=== PATIENT | male | born 1960 | race African-American/Black ===

== ENCOUNTER 2019-10-15 13:10 | Emergency (ER) | payer MEDICAID ==
[~2019-10-15] VITALS: Ht 165.1 cm; Wt 45.4 kg
--- NOTE | 2019-10-15 13:25 | NUR ---
ED Nurse Note: Pt walked in from home c/o generlized weakness x 1 week with difficulty walking. Pt reports weight loss. Denies n/v/d and denies loss of appetite. Pt c/o RLE pain 01/28 x 2 months, ambulatory with assistance. Respirations even and unlabored on room air. Vitals stable as documented.
--- NOTE | 2019-10-15 13:46 | Emergency Room Report ---
History of Present Illness General Chief Complaint: Generalized Weakness Source: Patient Present Illness HPI 59-year-old male with no known significant past medical history here complaining of feeling weak all over body x1 week as well as right leg pain x2 months. Patient denies any fall or injury. Reports that he has not been seen by a doctor for the past 35 years. 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 Rates the pain 10 out of 10 in right lower extremity especially at nighttime. Denies any calf tenderness. Denies any chest pain shortness of breath. Denies any fever chills, cough or congestion. Denies any unilateral weakness, slurred speech, headache and dizziness. Denies any memory loss. Denies any palpitation, abdominal pain, nausea vomiting. Reports in the past 2 months he has been losing a lot of weight about 15 pounds without any change in diet. Denies any loss of appetite. Denies any diarrhea, blood in stool or urine. Reports that he has been smoking 10 cigarettes/day since 1974 and denies any drug use or alcohol intake. Denies any pleuritic chest pain. Appears with slightly elevated blood pressure however vital signs otherwise within normal limits. Allergies: Coded Allergies: No Known Allergies (Unverified , 10/15/19) COVID-19 Screening Contact w/high risk pt: No Recent Travel to affected area: No Experienced COVID-19 symptoms?: No Patient History Past Medical History: see triage record Past Surgical History: none Social History: Reports: smoking - Smoking about 10 cigarettes/day Immunizations: UTD Reviewed Nursing Documentation: PMH: Agreed; PSxH: Agreed Nursing Documentation-PMH Past Medical History: No Stated History Review of Systems All Other Systems: negative except mentioned in HPI Physical Exam Vital Signs Date Time Temp Pulse Resp B/P (MAP) Pulse Ox O2 Delivery O2 Flow Rate FiO2 10/15/19 13:19 98.2 109 16 153/67 (95) 96 Room Air Sp02 EP Interpretation: reviewed, abnormal - Elevated blood pressure General Appearance: no apparent distress, alert, GCS 15, non-toxic Head: normocephalic, atraumatic Eyes: bilateral eye normal inspection, bilateral eye PERRL ENT: hearing grossly normal, normal pharynx, no angioedema, normal voice Neck: full range of motion, supple/symm/no masses Respiratory: chest non-tender, lungs clear, normal breath sounds, no rhonchi, no retraction, no wheezing, speaking full sentences Cardiovascular #1: regular rate, rhythm, no edema, no murmur Gastrointestinal: normal bowel sounds, non tender, soft, non-distended, no guarding, no rebound Genitourinary: no CVA tenderness Musculoskeletal: back normal, digits/nails normal, no calf tenderness Neurologic: alert, motor strength/tone normal, oriented x3, sensory intact, responsive, speech normal Psychiatric: judgement/insight normal, memory normal, mood/affect normal, no suicidal/homicidal ideation Skin: no rash Lymphatic: no adenopathy Medical Decision Making PA Attestation All my diagnosis and treatment plans were reviewed ad discussed with my supervising physician Dr. Arriaga Diagnostic Impression: Primary Impression: Hyperglycemia Additional Impression: Muscle strain ER Course 59-year-old male with no known significant past medical history here complaining of feeling weak all over body x1 week as well as right leg pain x2 months. Patient denies any fall or injury. Reports that he has not been seen by a doctor for the past 35 years. 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 Rates the pain 10 out of 10 in right lower extremity especially at nighttime. Denies any calf tenderness. Denies any chest pain shortness of breath. Denies any fever chills, cough or congestion. Denies any unilateral weakness, slurred speech, headache and dizziness. Denies any memory loss. Denies any palpitation, abdominal pain, nausea vomiting. Reports in the past 2 months he has been losing a lot of weight about 15 pounds without any change in diet. Denies any loss of appetite. Denies any diarrhea, blood in stool or urine. Reports that he has been smoking 10 cigarettes/day since 1974 and denies any drug use or alcohol intake. Denies any pleuritic chest pain. Appears with slightly elevated blood pressure however vital signs otherwise within normal limits. Ddx considered but are not limited to: CVA, TIA, pulmonary embolism leading to stroke,DM Vital signs: are WNL, pt. is afebrile H&PE are most consistent with: Hyperglycemia, muscle strain ORDERS: Head CT no contrast, stroke work-up, DKA work-up, Tylenol, Voltaren gel ER intervention: NS bolus, insulin 10 units At this time patient to be discharged stable time of discharge, patient follow with primary doctor for management of type 2 diabetes hemoglobin A1c to be done and patient to be evaluated for determination of further insulin-dependent or p.o. medication. Also patient to follow primary doctor due to weight loss as patient is a smoker to be sent to [facility] possible carcinoma. EKG Diagnostic Results Rate: normal Rhythm: NSR ST Segments: no acute changes Other Impression No acute ST changes Chest X-Ray Diagnostic Results Chest X-Ray Diagnostic Results : Chest X-Ray Ordered: Yes # of Views/Limited/Complete: 1 View Indication: Other EP Interpretation: Yes PA Xray: Interpretation reviewed, by supervising MD, and agrees with findings. Interpretation: no consolidation, no effusion, no pneumothorax Impression: No acute disease Electronically Signed by: Mike Shepherd PA-C CT/MRI/US Diagnostic Results CT/MRI/US Diagnostic Results : Imaging Test Ordered: Head CT no contrast Impression FINDINGS: Brain: No acute infarct or hemorrhage. No extra-axial fluid collection. No mass effect or midline shift. Ventricles and sulci: Normal. No ventriculomegaly or intraventricular hemorrhage. Bones: Normal. No bony lesion or fracture. Subcutaneous tissues: Normal. Sinuses: Mild mucosal thickening in the ethmoid air cells and right sphenoid sinus. Mastoid air cells: Normal. Orbits: Grossly unremarkable. Other: Mild atherosclerotic calcifications of the intracranial vasculature. IMPRESSION: No acute intracranial abnormality. Last Vital Signs Date Time Temp Pulse Resp B/P (MAP) Pulse Ox O2 Delivery O2 Flow Rate FiO2 10/15/19 13:19 98.2 109 16 153/67 (95) 96 Room Air Disposition: HOME, SELF-CARE Condition: Stable Scripts Diclofenac Sodium (VOLTAREN) 100 Gm Gel..gram. 2 GM TP TID, #100 GM Prov: Mike Coulter 10/15/19 Acetaminophen* (TYLENOL EXTRA STRENGTH*) 500 Mg Tablet 500 MG ORAL Q8H PRN for Prn Headache/Temp > 101, #30 TAB 0 Refills Prov: Mike Coulter 10/15/19 Patient Instructions: Hyperglycemia, [id number], Muscle Strain, [id number] , Weakness Additional Instructions: Patient to follow-up primary doctor for better management of diabetes, hemoglobin A1c to be tested and managed. Avoid smoking, avoid eating sugar and carbohydrate, if worsening symptoms return to the emergency room. Also have primary doctor evaluate you further for weight loss, referral to [facility] needed due to your prolonged history of smoking. Mike Coulter Oct 15, 2019 13:46
--- NOTE | 2019-10-15 13:47 | NUR ---
ED Nurse Note: blood sent to lab. Fingerstick BS 466. ED PA aware
[2019-10-15 13:58] VITALS: BP 149/71
--- NOTE | 2019-10-15 14:05 | Diagnostic Imaging Report ---
EXAM: CT Head Without Intravenous Contrast CLINICAL HISTORY: DIZZY TECHNIQUE: Axial computed tomography images of the head/brain without intravenous contrast. CTDI is 53.4 mGy and DLP is 938.7 mGy-cm. One or more of the following dose reduction techniques were used: automated exposure control, adjustment of the mA and/or kV according to patient size, use of iterative reconstruction technique. COMPARISON: None FINDINGS: Brain: No acute infarct or hemorrhage. No extra-axial fluid collection. No mass effect or midline shift. Ventricles and sulci: Normal. No ventriculomegaly or intraventricular hemorrhage. Bones: Normal. No bony lesion or fracture. Subcutaneous tissues: Normal. Sinuses: Mild mucosal thickening in the ethmoid air cells and right sphenoid sinus. Mastoid air cells: Normal. Orbits: Grossly unremarkable. Other: Mild atherosclerotic calcifications of the intracranial vasculature. IMPRESSION: No acute intracranial abnormality.
--- NOTE | 2019-10-15 14:07 | Diagnostic Imaging Report ---
EXAM: XR Chest, 1 View CLINICAL HISTORY: PAIN TECHNIQUE: Frontal view of the chest. COMPARISON: None FINDINGS: Hardware: None. Lungs/pleura: Normal. No focal consolidation. No pleural effusion or pneumothorax. Heart/mediastinum: Normal. No cardiomegaly. Soft tissues: Unremarkable. Bones: No acute fracture. Upper abdomen: Normal. IMPRESSION: No acute disease identified.
--- NOTE | 2019-10-15 14:40 | NUR ---
ED Nurse Note: urine sent to lab
[2019-10-15 14:52] LABS: BASOPHILS % (AUTO) 1.7 % (0.0-2.0); HEMATOCRIT 43.5 % (42.0-52.0); HEMOGLOBIN 16.1 G/DL (14.2-18.0); LYMPHOCYTES % (AUTO) 27.7 % (20.0-45.0); MEAN CORPUSCULAR VOLUME 89 FL (80-99); MONOCYTES % (AUTO) 7.7 % (1.0-10.0); NEUTROPHILS % (AUTO) 54.9 % (45.0-75.0); PLATELET COUNT 187 K/UL (150-450); RED CELL DISTRIBUTION WIDTH 9.6 % (11.6-14.8); WHITE BLOOD COUNT 7.2 K/UL (4.8-10.8)
[2019-10-15 15:05] LABS: ANION GAP 12 mmol/L (5-15); BLOOD UREA NITROGEN 9 mg/dL (7-18); CALCIUM 9.3 MG/DL (8.5-10.1); CARBON DIOXIDE 26 MMOL/L (21-32); CHLORIDE 96 MMOL/L (98-107); CREATININE 0.9 MG/DL (0.55-1.30); POTASSIUM 3.8 MMOL/L (3.5-5.1); SODIUM 134 MMOL/L (136-145)
[2019-10-15 15:08] LABS: APPEARANCE,URINE CLEAR; BILIRUBIN, URINE NEGATIVE (NEGATIVE); COLOR,URINE PALE YELLOW; GLUCOSE, URINE (UA) 4+ (NEGATIVE); KETONES,URINE NEGATIVE (NEGATIVE); LEUKOCYTE ESTERASE ,URINE NEGATIVE (NEGATIVE); NITRITE,URINE NEGATIVE (NEGATIVE); PH,URINE 7 (4.5-8.0); PROTEIN,URINE NEGATIVE (NEGATIVE); UROBILINOGEN,URINE 1 MG/DL (0.0-1.0)
[2019-10-15 15:09] LABS: ALANINE AMINOTRANSFERASE 21 U/L (12-78); ALBUMIN 3.8 G/DL (3.4-5.0); ALKALINE PHOSPHATASE 102 U/L (46-116); ASPARTATE AMINO TRANSFERASE 15 U/L (15-37); CREATINE KINASE 43 U/L (26-308)
[2019-10-15] MEDS ORDERED: Insulin Human Regular 100units/ml 3ml IV ONE (15:30)
[2019-10-15 16:00] VITALS: BP 145/74
--- NOTE | 2019-10-15 16:31 | NUR ---
ED Nurse Note: BS checked --> 431. ED MD aware
--- NOTE | 2019-10-15 16:50 | NUR ---
ED Nurse Note: ED PA @ bedside
[2019-10-15] MEDS ORDERED: VOLTAREN100 G1 TP (16:57)
[2019-10-15] MEDS ORDERED: TYLENOL EXTRA500 MG ORAL (16:57)
[2019-10-15 17:08] VITALS: BP 138/71
--- NOTE | 2019-10-15 17:08 | NUR ---
ER DISCHARGE NOTE: Patient is cleared to be discharged per ERMD, pt is aox4, on room air, with stable vital signs. pt was given dc and prescription instructions, pt was able to verbalize understanding, pt id band and iv site removed without complications. pt is able to ambulate with steady gait. pt took all belongings.
== END 2019-10-15 17:08 | disposition home or self-care (01) ==
LOC: EMR 13:49
DX: R73.9 Hyperglycemia, unspecified (principal); T14.8XXA Other injury of unspecified body region, initial encounter; X58.XXXA Exposure to other specified factors, initial encounter; Y92.9 Unspecified place or not applicable; M79.604 Pain in right leg; F17.210 Nicotine dependence, cigarettes, uncomplicated
CPT/HCPCS: 36415; 70450; 71045; 80053; 81003; 82009; 82550; 83735; 83880; 84484; 85025; 85379; 85610; 85730; 93005; 96361; 96374; J1815; Z7502; 99284; J7030